=== PATIENT | male | born 1970 | race Caucasian/White ===

== ENCOUNTER 2017-03-13 18:10 | Emergency (ER) | payer OTHER ==
[~2017-03-13] VITALS: Ht 185.4 cm; Wt 97.5 kg
[2017-03-13] MEDS ORDERED: ADENOSINE 6 MG/2 ML (ADENOCARD) VIAL IV ONE (18:11)
[2017-03-13] MEDS ORDERED: NS IV 1000 ML 1,000 ML IV ONE (18:19)
--- NOTE | 2017-03-13 18:31 | ED Cardiac General ---
History of Present Illness General Stated Complaint: CHEST DISCOMFORT Source: patient History of Present Illness Time seen by provider: 18:12 Initial Comments PT ARRIVES VIA POV FROM HOME C/O ELEVATED HEART RATE--WAS 202 AT HOME PT STATES HE WAS RUNNING, AND HAD NOT COMPLETED 2 LAPS, WHEN HE BEGAN TO FEEL HIS HEART RACING, BECAME DIZZY AND VERY SHORT OF BREATH, SOME CHEST DISCOMFORT BEGAN AT 1715 TODAY NO HISTORY OF SIMILAR, AND RUNNING IS NOT AN UNUSUAL ACTIVITY PCP: DR. CARR Allergies and Home Medications Allergies Coded Allergies: No Known Drug Allergies (Unverified , 03/13/17) Home Medications Diltiazem HCl 120 Mg Tab.er.24h, 120 MG PO DAILY, #15 Prescribed by: ALYSSA LOFTON on 03/13/17 1950 Fluticasone Propionate 9.9 Ml [place].susp, Unknown Dose NS, (Reported) Loratadine 10 Mg Tab.rapdis, 10 MG PO DAILY, (Reported) Review of Systems Constitutional: see HPI, diaphoresis, dizziness EENTM: No Symptoms Reported Respiratory: See HPI, Shortness of Air, SOA With Exertion, SOA at Rest Cardiovascular: See HPI, Chest Pain, Irregular Heart Rate, Lightheadedness, Palpitations, Denies Syncope Gastrointestinal: No Symptoms Reported Genitourinary: No Symptoms Reported Musculoskeletal: no symptoms reported Skin: no symptoms reported Psychiatric/Neurological: No Symptoms Reported Endocrine: No Symptoms Reported Hematologic/Lymphatic: No Symptoms Reported Past Dkruacn-[id number] Hx Patient Social History Alcohol Use: Occasionally Uses Recreational Drug Use: No Smoking Status: Never a Smoker Recent Foreign Travel: No Contact w/Someone Who Travel: No Seasonal Allergies Seasonal Allergies: Yes Surgeries HX Surgeries: Yes (SINUS SURGERY) Surgeries: Gallbladder Respiratory Hx Respiratory Disorders: No Cardiovascular Hx Cardiac Disorders: Yes Cardiac Disorders: High Cholesterol Neurological Hx Neurological Disorders: No Genitourinary Hx Genitourinary Disorders: No Gastrointestinal Hx Gastrointestinal Disorders: Yes (S/P JORGE) Gastrointestinal Disorders: Gall Bladder Disease Musculoskeletal Hx Musculoskeletal Disorders: No Endocrine Hx Endocrine Disorders: No HEENT HX ENT Disorders: Yes (SINUS PROBLEMS--S/P SURGERY) Cancer Hx Cancer: No Psychosocial Hx Psychiatric Problems: No Integumentary HX Skin/Integumentary Disorder: No Blood Transfusions Hx Blood Disorders: No Physical Exam Vital Signs Vital Sign - Last 12Hours 03/13/17 18:13 Temp 97.2 Pulse 83 Resp 17 B/P (MAP) 141/90 Pulse Ox 99 O2 Delivery Nasal Cannula O2 Flow Rate 3.00 Capillary Refill : General Appearance: No Apparent Distress, WD/WN Neck: Full Range of Motion, Normal Inspection, Non Tender, Supple Respiratory: Normal Breath Sounds, No Accessory Muscle Use, No Respiratory Distress Cardiovascular: No Edema, No JVD, No Murmur, Normal Peripheral Pulses, Tachycardia Gastrointestinal: Non Tender, Soft Extremity: Normal Capillary Refill, Normal Inspection, Normal Range of Motion, Non Tender, No Calf Tenderness, No Pedal Edema Neurologic/Psychiatric: Alert, Oriented x3, No Motor/Sensory Deficits, Normal Mood/Affect, boner meat II-XII Norm as Tested Skin: Normal Color, Damp Progress/Results/Core Measures Results/Orders Lab Results Laboratory Tests Test 03/13/17 18:35 Range/Units White Blood Count 5.2 4.3-11.0 10^3/uL Red Blood Count 5.13 4.35-5.85 10^6/uL Hemoglobin 16.0 13.3-17.7 G/DL Hematocrit 46 40-54 % Mean Corpuscular Volume 89 80-99 FL Mean Corpuscular Hemoglobin 31 25-34 PG Mean Corpuscular Hemoglobin Concent 35 32-36 G/DL Red Cell Distribution Width 12.0 10.0-14.5 % Platelet Count 245 130-400 10^3/uL Mean Platelet Volume 10.1 7.4-10.4 FL Neutrophils (%) (Auto) 55 42-75 % Lymphocytes (%) (Auto) 31 12-44 % Monocytes (%) (Auto) 11 0-12 % Eosinophils (%) (Auto) 2 0-10 % Basophils (%) (Auto) 0 0-10 % Neutrophils # (Auto) 2.8 1.8-7.8 X 10^3 Lymphocytes # (Auto) 1.6 1.0-4.0 X 10^3 Monocytes # (Auto) 0.6 0.0-1.0 X 10^3 Eosinophils # (Auto) 0.1 0.0-0.3 10^3/uL Basophils # (Auto) 0.0 0.0-0.1 10^3/uL Prothrombin Time 13.3 12.2-14.7 SEC INR Comment 1.0 0.8-1.4 Activated Partial Thromboplast Time 27 24-35 SEC Sodium Level 143 135-145 MMOL/L Potassium Level 3.9 3.6-5.0 MMOL/L Chloride Level 107 98-107 MMOL/L Carbon Dioxide Level 21 21-32 MMOL/L Anion Gap 15 H 5-14 MMOL/L Blood Urea Nitrogen 16 7-18 MG/DL Creatinine 1.22 0.60-1.30 MG/DL Estimat Glomerular Filtration Rate > 60 BUN/Creatinine Ratio 13 Glucose Level 104 70-105 MG/DL Calcium Level 9.3 8.5-10.1 MG/DL Magnesium Level 1.9 1.8-2.4 MG/DL Total Bilirubin 0.7 0.1-1.0 MG/DL Aspartate Amino Transf (AST/SGOT) 32 5-34 U/L Alanine Aminotransferase (ALT/SGPT) 61 H 0-55 U/L Alkaline Phosphatase 54 40-136 U/L Total Creatine Kinase 111 30-200 U/L Creatine Kinase MB 2.1 <6.6 NG/ML Troponin I < 0.30 <0.30 NG/ML B-Type Natriuretic Peptide 40.5 <100.0 PG/ML Total Protein 7.0 6.4-8.2 G/DL Albumin 4.0 3.2-4.5 G/DL Amylase Level 83 25-125 U/L Lipase 72 8-78 U/L My Orders Orders - ALYSSA LOFTON DO Adenosine Injection (Adenocard Injection (03/13/17 18:11) Amylase (03/13/17 18:19) Cbc With Automated Diff (03/13/17 18:19) Comprehensive Metabolic Panel (03/13/17 18:19) Creatine Kinase (03/13/17 18:19) Creatine Kinase Mb (03/13/17 18:19) Lipase (03/13/17 18:19) Partial Thromboplastin Time (03/13/17 18:19) Protime With Inr (03/13/17 18:19) Troponin I (03/13/17 18:19) Chest 1 View, Ap/Pa Only (03/13/17 18:19) O2 (03/13/17 18:19) Ekg Tracing (03/13/17 18:19) BNP (03/13/17 18:19) Monitor-Rhythm Ecg Trace Only (03/13/17 18:19) Magnesium (03/13/17 18:19) Saline Lock/Iv-Start (03/13/17 18:19) Saline Lock/Iv-Start (03/13/17 18:19) Ns Iv 1000 Ml (Sodium Chloride 0.9%) (03/13/17 18:19) Ct Angio Chest W (03/13/17 18:28) Iohexol Injection (Omnipaque 350 Mg/Ml 1 (03/13/17 19:15) Ns (Ivpb) (Sodium Chloride 0.9% Ivpb Bag (03/13/17 19:15) Medications Given in ED Current Medications Medications Dose Ordered Sig/Darling Route Start Time Stop Time Status Last Admin Dose Admin Iohexol 125 ml ONCE ONCE IV 03/13/17 19:15 03/13/17 19:16 DC 03/13/17 19:09 125 ML Sodium Chloride 100 ml ONCE ONCE IV 03/13/17 19:15 03/13/17 19:16 DC 03/13/17 19:10 80 ML Sodium Chloride 1,000 ml @ 0 mls/hr Q0M ONCE IV 03/13/17 18:19 03/13/17 18:21 DC 03/13/17 18:15 0 MLS/HR Vital Signs/I&O Vital Sign - Last 12Hours 03/13/17 03/13/17 03/13/17 18:13 18:13 20:07 Temp 97.2 97.2 Pulse 83 85 Resp 17 17 B/P (MAP) 141/90 Pulse Ox 99 94 O2 Delivery Nasal Cannula O2 Flow Rate 3.00 3.00 Intake and Output 03/14/17 00:00 Intake Total 1000 ml Balance 1000 ml Progress Note : Progress Note PT SELF-CONVERTED SHORTLY AFTER ARRIVAL AND PT FEELING BACK TO NORMAL O2 SATS VARY FROM 92-99% ON ROOM AIR, AND WITH O2 AT 2L/NC, EVEN AFTER CONVERTING PT INCREASINGLY ANXIOUS TO LEAVE THROUGHOUT ER STAY STRONGLY ADVISED ADMIT, AND PT ADAMANTLY REFUSES TO STAY ECG Initial ECG Impression Time: 18:14 Initial ECG Rate: 179 Initial ECG Rhythm: SVT Initial ECG Comparisson: No Previous ECG Available EKG : EKG Time: 18:18 Rate: 92 Rhythm: Normal Sinus Diagnostic Imaging Comments CXR--POOR INSPIRATION, ATELECTASIS LEFT LUNG BASE, PER RADIOLOGIST REPORT @ 1852 Reviewed: Reviewed by Me Departure Communication Progress Notes 1940--SPOKE WITH DR. DÍAZ, HE WILL SEE PT IN OFFICE THIS WEEK. ADVISES CARDIZEM LA 120 MG DAILY. Impression Impression: Primary Impression: Supraventricular tachycardia Disposition: HOME, SELF-CARE Condition: Improved Departure-Patient Inst. Referrals: An DÍAZ MD Patient Instructions: Paroxysmal Supraventricular Tachycardia (DC) Add. Discharge Instructions: HOME, REST LOTS OF FLUIDS NO EXERCISE OR STRENUOUS ACTIVITY OF ANY KIND UNTIL YOU ARE CLEARED BY HEEL SEWER FOLLOW UP WITH DR. DÍAZ THIS WEEK FOR FURTHER CARE RETURN TO ER IF SYMPTOMS WORSEN Scripts Diltiazem HCl (Cardizem LA) 120 Mg Tab.er.24h 120 MG PO DAILY, #15 TAB Prov: ALYSSA LOFTON DO 03/13/17 ALYSSA LOFTON DO March 13, 2017 18:31
[2017-03-13 18:47] LABS: BASOPHILS % (AUTO) 0 % (0-10); EOSINOPHILS # (AUTO) 0.1 10^3/uL (0.0-0.3); EOSINOPHILS % (AUTO) 2 % (0-10); LYMPHOCYTES # (AUTO) 1.6 X 10^3 (1.0-4.0); LYMPHOCYTES % (AUTO) 31 % (12-44); MEAN CORPUSCULAR HEMOGLOBIN 31 PG (25-34); MEAN CORPUSCULAR HGB CONC 35 G/DL (32-36); MEAN CORPUSCULAR VOLUME 89 FL (80-99); MEAN PLATELET VOLUME 10.1 FL (7.4-10.4); MONOCYTES # (AUTO) 0.6 X 10^3 (0.0-1.0); MONOCYTES % (AUTO) 11 % (0-12); NEUTROPHILS # (AUTO) 2.8 X 10^3 (1.8-7.8); NEUTROPHILS % (AUTO) 55 % (42-75); PLATELET COUNT 245 10^3/uL (130-400); RED BLOOD COUNT 5.13 10^6/uL (4.35-5.85); WHITE BLOOD COUNT 5.2 10^3/uL (4.3-11.0)
--- NOTE | 2017-03-13 18:49 | Diagnostic Imaging Report ---
INDICATION: Tachycardia started today. COMPARISON STUDIES: None. FINDINGS: Portable upright view of the chest demonstrates poor inspiration with mild atelectasis in the left lung base. Heart size and vascularity are normal. No pleural effusions are seen. IMPRESSION: There is poor inspiration with mild atelectasis in the left lung base. Dictated by: Dictated on workstation # [id number]
[2017-03-13] MEDS ORDERED: LORA10TA72 PO (18:58)
[2017-03-13] MEDS ORDERED: FLUT9.9S NS (18:58)
[2017-03-13 19:05] LABS: MAGNESIUM 1.9 MG/DL (1.8-2.4)
[2017-03-13 19:14] LABS: ALANINE AMINOTRANSFERASE 61 U/L (0-55); AMYLASE 83 U/L (25-125); ANION GAP 15 MMOL/L (5-14); ASPARTATE AMINO TRANSFERASE 32 U/L (5-34); BILIRUBIN,TOTAL 0.7 MG/DL (0.1-1.0); BLOOD UREA NITROGEN 16 MG/DL (7-18); BUN/CREATININE RATIO 13; CALCIUM 9.3 MG/DL (8.5-10.1); CARBON DIOXIDE 21 MMOL/L (21-32); CHLORIDE 107 MMOL/L (98-107); CREATINE KINASE 111 U/L (30-200); CREATININE SERUM 1.22 MG/DL (0.60-1.30); GFR ESTIMATED > 60; GLUCOSE 104 MG/DL (70-105); LIPASE 72 U/L (8-78); POTASSIUM 3.9 MMOL/L (3.6-5.0); SODIUM 143 MMOL/L (135-145)
[2017-03-13] MEDS ORDERED: NS 100 ML (IVPB) BAG IV ONE (19:15)
[2017-03-13] MEDS ORDERED: IOHEXOL 350 MG/ML 150 ML (OMNIPAQUE 350) VIAL IV ONE (19:15)
[2017-03-13 19:20] LABS: TROPONIN I < 0.30 NG/ML (<0.30)
--- NOTE | 2017-03-13 19:26 | Diagnostic Imaging Report ---
PROCEDURE: CT angiography of the chest with contrast. TECHNIQUE: Multiple contiguous axial images were obtained through the chest after uneventful bolus administration of intravenous contrast. Reconstructed CTA MIP acquisitions were also performed. INDICATION: Tachycardia. Shortness of air. COMPARISON: None. FINDINGS: Evaluation of the mid and upper portions of the pulmonary arteries is suboptimal secondary to obscuration from beam hardening artifact from contrast bolus in the SVC. The lobar and segmental branches of the right lower lobe pulmonary arteries and segmental divisions of the left lower lobe pulmonary artery show no evidence of acute pulmonary embolus. Heart size is within normal limits. There is no large pericardial effusion. No pathologically enlarged or morphologically abnormal adenopathy is seen within the mediastinum, varun, nor axilla. Thoracic aorta is normal in course and caliber. Lung windows are partially obscured secondary to motion artifact. There is no focal consolidation, pleural effusion, nor pneumothorax. There is mild dependent posterior atelectasis. There is focal nodular thickening involving the anterior margins of the minor fissure on the right. Area in question measures approximately 5-6 mm in diameter (image 72, series 4). Small micronodule is also noted within the right lower lobe and measures approximately 4 mm (image 83, series 4). Bony structures show no acute abnormalities. No lytic or blastic bony lesions are identified. Included portions of the upper abdomen are unremarkable. IMPRESSION: 1. No CT evidence of acute pulmonary embolus, but with moderate limitations as described above. 2. No other acute cardiopulmonary abnormality identified. 3. Micronodules on the right as described above. If patient is in a high-risk category such as history of smoking, six-month followup is recommended. Alternatively, if patient is in a low-risk category, one-month followup could be performed. Dictated by: Dictated on workstation # [id number]
[2017-03-13] MEDS ORDERED: DILT120T PO (19:50)
[2017-03-13 20:07] VITALS: BP 125/92
[2017-03-13 20:55] LABS: PROTHROMBIN TIME PATIENT 13.3 SEC (12.2-14.7)
== END 2017-03-13 20:07 | disposition home or self-care (01) ==
LOC: EDUNIT# 18:10 → ER 18:13
DX: I47.1 Supraventricular tachycardia (principal)
CPT/HCPCS: 36415; 71010; 71275; 80053; 82150; 82550; 82553; 83690; 83735; 83880; 84484; 85025; 85610; 85730; 93005; 93041